=== PATIENT | female | born 1980 ===

== ENCOUNTER 2021-09-08 08:57 | Day surgery (SDC) | payer OTHER | END 2021-09-08 14:30 | disposition home or self-care (01) | LOC: CIR.AMB 08:57 | PROVIDERS: ATTEND Orthopaedic Surgery Hand Surgery | DX: M19.232 Secondary osteoarthritis, left wrist (principal) | CPT/HCPCS: 25825; L8699 ==

== ENCOUNTER 2022-11-16 06:02 | Day surgery (SDC) | payer OTHER ==
[~2022-11-16] VITALS: Ht 167.6 cm; Wt 86.2 kg
[~2022-11-16 06:02] MED LIST: [UNRECOGNIZED DRUG - OTHER] PO
== END 2022-11-16 14:45 | disposition home or self-care (01) ==
LOC: CIR.AMB 06:02
PROVIDERS: ATTEND Orthopaedic Surgery Hand Surgery
DX: M19.132 Post-traumatic osteoarthritis, left wrist (principal); T84.89XA Other specified complication of internal orthopedic prosthetic devices, implants and grafts, initial encounter; E11.9 Type 2 diabetes mellitus without complications; Z20.822 Contact with and (suspected) exposure to COVID-19; I10 Essential (primary) hypertension